=== PATIENT | male | born 1965 | race Caucasian/White ===

== ENCOUNTER 2020-09-18 21:47 | Emergency (ER) | payer SELFPAY ==
[~2020-09-18] VITALS: Ht 167.6 cm; Wt 77.4 kg
[2020-09-18 21:51] VITALS: BP 127/74
[2020-09-18] MEDS ORDERED: BACITRACIN ZINC OINT 500U/GM, 0.9 GM ONE (22:13)
[2020-09-18] MEDS ORDERED: SULFAMETH./TRIMETHOPRIM DS 800MG/160MG TABLET ONE (22:13)
[2020-09-18] MEDS ORDERED: SULFAMETH./TRIMETHOPRIM DS 800MG/160MG TABLET PO ONE (22:30)
== END 2020-09-18 22:35 | disposition home or self-care (01) ==
LOC: ED 22:00
DX: L03.116 Cellulitis of left lower limb (principal); G89.29 Other chronic pain; M25.511 Pain in right shoulder; F17.210 Nicotine dependence, cigarettes, uncomplicated
CPT/HCPCS: 99406